=== PATIENT | female | born 1975 | race Caucasian/White ===

== ENCOUNTER 2018-07-15 10:50 | Emergency (ER) | payer OTHER ==
[2018-07-15] MEDS ORDERED: Hydromorphone 1 mg/ml Ampule IV ONE ×2 (11:25→14:31)
[2018-07-15] MEDS ORDERED: Sodium Chloride 0.9% 1000 ML 1,000 ML IV SCH (11:30)
[2018-07-15 11:48] LABS: BASOPHIL % 0.2 % (0.0-0.4); Basophil (Absolute #) 0.02 (0-0.4); Eosinophil % 0.8 % (0.00-5.0); Eosinophil (Absolute #) 0.08 (0-0.5); Granulocyte Absolute (ANC) 6.49 (1.4-6.9); Granulocytes % 66.4 % (36.0-66.0); Hematocrit 43.7 % (35-47); Hemoglobin 14.4 gm/dl (12.0-16.0); Lymphocyte (Absolute #) 2.66 (1.0-4.6); Lymphocytes % 27.2 % (24.0-44.0); Mean Cell Volume 92.4 fl (78-100); Mean Corpuscular Hemoglobin 30.4 pg (26-32); Mean Platelet Volume 9.4 fl (6-9.5); Monocyte (Absolute #) 0.53 (0.0-1.3); Monocytes % 5.4 % (0.0-12.0); Platelet Count 358 K/mm3 (150-450); Red Blood Count 4.73 M/mm3 (4.1-5.4); Red Cell Distribution Width 13.4 % (11.5-14.0); White Blood Count 9.8 K/mm3 (4.0-10.5)
[2018-07-15] MEDS ORDERED: Hydromorphone 1 mg/ml Ampule ONE ×2 (11:51→14:35)
[2018-07-15] MEDS ORDERED: Sodium Chloride 0.9% 1000 ML 1,000 ML ONE (11:52)
[2018-07-15 11:59] LABS: ALBUMIN 4.4 g/dL (3.5-5.0); ALKALINE PHOSPHATASE 65 U/L (38-126); AMYLASE 56 U/L (30-110); ANION GAP 13.5 MEQ/L (5-15); BLOOD UREA NITROGEN 11 mg/dL (7-17); CHLORIDE 104 mmol/L (98-107); Calcium 9.8 mg/dL (8.4-10.2); Carbon Dioxide 26 mmol/L (22-30); Creatinine 1 0.76 mg/dL (0.52-1.04); Glucose 108 mg/dL (74-106); LIPASE 78 U/L (23-300); Potassium 4.3 mmol/L (3.5-5.1); SGOT/AST 24 U/L (14-36); SGPT/ALT 26 U/L (0-35); SODIUM 140 mmol/L (137-145)
--- NOTE | 2018-07-15 12:21 | XRAY ---
Indication: Left flank pain. History kidney stones. Multiple contiguous axial images obtained through the abdomen and pelvis without contrast as ordered. Comparison: CT renal stone study April 04, 2016P Lung bases demonstrates mild bibasilar dependent atelectasis. Stable minimal left base fibrosis/scarring. No infiltrate or effusion. Heart is not enlarged. New small hiatal hernia. Noncontrasted stomach and bowel loops appear nonobstructed. Normal appendix. No free fluid/air. Again mild scattered colonic diverticulosis, greatest in the sigmoid colon. There is now a 3-4 mm left midureteral calculus, approximately S1 level. Proximal left ureter is prominent up to 8 mm and there is mild hydronephrosis with renal edema consistent with obstructive uropathy. No perinephric fluid. Stable nonobstructing punctate right renal calculus. Stable fatty liver. Remaining liver, gallbladder, pancreas, spleen, adrenal glands, bladder, uterus, and aorta appear unremarkable for noncontrast exam. Osseous structures intact. Stable small fatty umbilical hernia. Impression: 1. New 3-4 mm left midureteral calculus producing partial obstruction as detailed. Stable nonobstructing right renal micro-calculus. 2. New small hiatal hernia. 3. Stable fatty liver, colonic diverticulosis, and small fatty umbilical hernia. CT DI 23.68
--- NOTE | 2018-07-15 13:19 | ERPHSYRPT ---
- History of Present Illness Historian: patient Exam Limitations: no limitations Patient Subjective Stated Complaint: here for abd pain lower, and left flank pain since this morning getting worse Triage Nursing Assessment: pt alert, resp easy, skin w/d/p, and soft, no edema Physician History: Pt states, today at work she developed severe abdominal pain that is at upper left side and wrapps around her abdomen to back. Pt denies dysuria, frequency and urgency. She has her period now, so she does have blood in the urine. Pt denies F/C/S. No N/V/D or constipation. Pt denies SOB or wheeze. Pt had a stent placed in the past by DR Lockhart, as she had multiple episodes of kidney stones. Activities at Onset: none Quality: sharpness Abdominal Pain Onset Location: LUQ, flank (on Left) Pain Radiation: flank (Left) Severity of Pain-Max: severe Severity of Pain-Current: severe Modifying Factors: Improves With: nothing Associated Symptoms: denies symptoms Allergies/Adverse Reactions: No Known Drug Allergies Allergy (Verified 07/15/18 11:06) Home Medications: No Reportable Medications [No Reported Medications] 07/15/18 [History] Hx Tetanus, Diphtheria Vaccination/Date Given: Yes Hx Influenza Vaccination/Date Given: No Hx Pneumococcal Vaccination/Date Given: No Immunizations Up to Date: Yes - Review of Systems Constitutional: No Fever, No Chills Eyes: No Symptoms Ears, Nose, & Throat: No Symptoms Respiratory: No Cough, No Dyspnea Abdominal/Gastrointestinal: Abdominal Pain, Other (radiating to left CVA), No Nausea, No Vomiting, No Diarrhea Genitourinary Symptoms: No Dysuria Musculoskeletal: No Back Pain, No Neck Pain Skin: No Rash Neurological: No Dizziness, No Focal Weakness, No Sensory Changes Psychological: No Symptoms Endocrine: No Symptoms All Other Systems: Reviewed and Negative - Past Medical History Pertinent Past Medical History: Yes Neurological History: Migraines ENT History: No Pertinent History Cardiac History: Other Respiratory History: No Pertinent History Endocrine Medical History: Other Musculoskeletal History: No Pertinent History GI Medical History: No Pertinent History, Irritable Bowel History: No Pertinent History Psycho-Social History: No Pertinent History Female Reproductive Disorders: No Pertinent History Other Medical History: KIDNEY STONES, MITRAL VALAVE PROLAPSE - Past Surgical History Past Surgical History: Yes Neuro Surgical History: No Pertinent History Cardiac: No Pertinent History Respiratory: No Pertinent History Gastrointestinal: No Pertinent History Genitourinary: No Pertinent History, Kidney Surgery Musculoskeletal: No Pertinent History Female Surgical History: No Pertinent History, Section Other Surgical History: tonsilectomy, kidney stones - Social History Smoking Status: Never smoker Exposure to second hand smoke: No Drug Use: none Patient Lives Alone: No - Female History Hx Last Menstrual Period: now Hx Now: No - Nursing Vital Signs Nursing Vital Signs: Initial Vital Signs Temperature 97.8 F 07/15/18 10:56 Pulse Rate 63 07/15/18 10:56 Respiratory Rate 16 07/15/18 10:56 Blood Pressure 151/98 07/15/18 10:56 O2 Sat by Pulse Oximetry 95 07/15/18 10:56 Pain Scale Pain Intensity 4 - Physical Exam General Appearance: no apparent distress, alert Eye Exam: PERRL/EOMI, eyes nml inspection Ears, Nose, Throat Exam: normal ENT inspection, pharynx normal, moist mucous membranes Neck Exam: normal inspection, non-tender, supple, full range of motion Respiratory Exam: normal breath sounds, lungs clear, No respiratory distress Cardiovascular Exam: regular rate/rhythm, normal heart sounds Gastrointestinal/Abdomen Exam: soft, tenderness, No mass Back Exam: normal inspection, normal range of motion, CVA tenderness (On left), No vertebral tenderness Extremity Exam: normal inspection, normal range of motion, pelvis stable SpO2: 98 Oxygen Delivery: Room Air - CT Exams Abdomen/Pelvis CT Interpretation: Other (New 3-4mm left midureteral calculus producing partial obstruction.) Ordered Tests: Active Orders 24 hr Category Date Time Status IV Insertion STAT Care 07/15/18 11:25 Active NPO (ED) STAT Care 07/15/18 11:25 Active ABDOMEN AND PELVIS W/0 CONTRAS [CT] Stat Exams 07/15/18 11:26 Completed AMYLASE Stat Lab 07/15/18 11:30 Completed CBC W DIFF Stat Lab 07/15/18 11:30 Completed CMP Stat Lab 07/15/18 11:30 Completed HCG,QUALITATIVE URINE Stat Lab 07/15/18 11:40 Completed LIPASE Stat Lab 07/15/18 11:30 Completed Lactic Acid Stat Lab 07/15/18 11:25 Completed Medication Summary Generic Name Dose Route Start Last Admin Trade Name Freq PRN Reason Stop Dose Admin Sodium Chloride 1,000 mls @ 200 mls/hr 07/15/18 11:30 07/15/18 11:59 Sodium Chloride 0.9% 1000 Ml IV 08/14/18 11:29 200 mls/hr .Q5H AV Administration Discontinued Medications Generic Name Dose Route Start Last Admin Trade Name Benson PRN Reason Stop Dose Admin Hydromorphone HCl 1 mg 07/15/18 11:25 07/15/18 11:59 Hydromorphone 1 Mg/Ml Ampule IV 07/15/18 11:26 1 mg STAT ONE Administration Hydromorphone HCl Confirm 07/15/18 11:51 Hydromorphone 1 Mg/Ml Ampule Administered 07/15/18 11:52 Dose 1 mg .ROUTE .[facility]-MED ONE Lab/Rad Data: Laboratory Result Diagrams 07/15/18 11:30 07/15/18 11:30 Laboratory Results 07/15/18 07/15/18 07/15/18 Range/Units 11:40 11:30 11:30 WBC 9.8 (4.0-10.5) K/mm3 RBC 4.73 (4.1-5.4) M/mm3 Hgb 14.4 (12.0-16.0) gm/dl Hct 43.7 (35-47) % MCV 92.4 (78-100) fl MCH 30.4 (26-32) pg MCHC 33.0 (32-36) g/dl RDW 13.4 (11.5-14.0) % Plt Count 358 (150-450) K/mm3 MPV 9.4 (6-9.5) fl Gran % 66.4 H (36.0-66.0) % Eos # (Auto) 0.08 (0-0.5) Absolute Lymphs (auto) 2.66 (1.0-4.6) Absolute Monos (auto) 0.53 (0.0-1.3) Lymphocytes % 27.2 (24.0-44.0) % Monocytes % 5.4 (0.0-12.0) % Eosinophils % 0.8 (0.00-5.0) % Basophils % 0.2 (0.0-0.4) % Absolute Granulocytes 6.49 (1.4-6.9) Basophils # 0.02 (0-0.4) Sodium 140 (137-145) mmol/L Potassium 4.3 (3.5-5.1) mmol/L Chloride 104 (98-107) mmol/L Carbon Dioxide 26 (22-30) mmol/L Anion Gap 13.5 (5-15) MEQ/L BUN 11 (7-17) mg/dL Creatinine 0.76 (0.52-1.04) mg/dL Estimated GFR > 60.0 ML/MIN Glucose 108 H (74-106) mg/dL Lactic Acid (0.4-2.0) Calcium 9.8 (8.4-10.2) mg/dL Total Bilirubin 0.40 (0.2-1.3) mg/dL AST 24 (14-36) U/L ALT 26 (0-35) U/L Alkaline Phosphatase 65 (38-126) U/L Serum Total Protein 7.0 (6.3-8.2) g/dL Albumin 4.4 (3.5-5.0) g/dL Amylase 56 (30-110) U/L Lipase 78 (23-300) U/L Urine HCG, Qual NEGATIVE (Negative) 07/15/18 Range/Units 11:25 WBC (4.0-10.5) K/mm3 RBC (4.1-5.4) M/mm3 Hgb (12.0-16.0) gm/dl Hct (35-47) % MCV (78-100) fl MCH (26-32) pg MCHC (32-36) g/dl RDW (11.5-14.0) % Plt Count (150-450) K/mm3 MPV (6-9.5) fl Gran % (36.0-66.0) % Eos # (Auto) (0-0.5) Absolute Lymphs (auto) (1.0-4.6) Absolute Monos (auto) (0.0-1.3) Lymphocytes % (24.0-44.0) % Monocytes % (0.0-12.0) % Eosinophils % (0.00-5.0) % Basophils % (0.0-0.4) % Absolute Granulocytes (1.4-6.9) Basophils # (0-0.4) Sodium (137-145) mmol/L Potassium (3.5-5.1) mmol/L Chloride (98-107) mmol/L Carbon Dioxide (22-30) mmol/L Anion Gap (5-15) MEQ/L BUN (7-17) mg/dL Creatinine (0.52-1.04) mg/dL Estimated GFR ML/MIN Glucose (74-106) mg/dL Lactic Acid 1.8 (0.4-2.0) Calcium (8.4-10.2) mg/dL Total Bilirubin (0.2-1.3) mg/dL AST (14-36) U/L ALT (0-35) U/L Alkaline Phosphatase (38-126) U/L Serum Total Protein (6.3-8.2) g/dL Albumin (3.5-5.0) g/dL Amylase (30-110) U/L Lipase (23-300) U/L Urine HCG, Qual (Negative) - Progress Progress: improved Discussed with .: Other (Dr Gutiérrez) Will see patient in: ED (Formerly [facility] ER) - Departure Time of Disposition: 14:22 Departure Disposition: Transfer (Formerly [facility] ER) Clinical Impression: Left nephrolithiasis Condition: Stable Critical Care Time: No Referrals: NEETA HECK [Primary Care Provider] - Additional Instructions: F/U with Dr Gutiérrez at [facility] ER. ED physician accepted.
[2018-07-15 14:59] VITALS: BP 132/81; PULSE 78; O2SAT 97
== END 2018-07-15 15:12 | disposition home or self-care (01) ==
LOC: ED 10:50
DX: N20.0 Calculus of kidney (principal); R10.9 Unspecified abdominal pain; I34.1 Nonrheumatic mitral (valve) prolapse; Z87.442 Personal history of urinary calculi
CPT/HCPCS: 36000; 36415; 74176; 80053; 82150; 83605; 83690; 84703; 85025; 96360; 96361; 96374; 96376; 99285; J1170

== ENCOUNTER 2019-09-22 01:47 | Emergency (ER) | payer OTHER ==
--- NOTE | 2019-09-22 01:53 | ERPHSYRPT ---
- History of Present Illness Time Seen by Provider: 09/22/19 01:53 Source: patient Exam Limitations: no limitations Physician History: 44 y/o white female presents with left earache that began this past evening. pt has had a cough for 2 days. no n/v/d. no abd pain. Timing/Duration: day(s) Cough Quality/Degree: mild, dry cough Possible Cause: no prior episodes Modifying Factors: Improves With: coughing Associated Symptoms: denies symptoms, earache (left), sore throat (mild) Allergies/Adverse Reactions: No Known Drug Allergies Allergy (Verified 09/22/19 02:30) Home Medications: Aspirin 81 mg PO DAILY 09/22/19 [History] Pioglitazone HCl/Metformin HCl [Pioglitazone-Metformin 15-500] 15 - 500 mg PO BID 09/22/19 [History] lisinopriL [Lisinopril] 10 mg PO DAILY 09/22/19 [History] Hx Tetanus, Diphtheria Vaccination/Date Given: Yes Hx Influenza Vaccination/Date Given: No Hx Pneumococcal Vaccination/Date Given: No - Review of Systems Constitutional: No Symptoms Eyes: No Symptoms Ears, Nose, & Throat: Ear Pain (left) Respiratory: Cough Cardiac: No Symptoms Abdominal/Gastrointestinal: No Symptoms Genitourinary Symptoms: No Symptoms Musculoskeletal: No Symptoms Skin: No Symptoms Neurological: No Symptoms Psychological: No Symptoms Endocrine: No Symptoms Hematologic/Lymphatic: No Symptoms Immunological/Allergic: No Symptoms All Other Systems: Reviewed and Negative - Past Medical History Pertinent Past Medical History: Yes Neurological History: Migraines ENT History: No Pertinent History Cardiac History: Other Respiratory History: No Pertinent History Endocrine Medical History: Other Musculoskeletal History: No Pertinent History GI Medical History: No Pertinent History, Irritable Bowel History: No Pertinent History Psycho-Social History: No Pertinent History Female Reproductive Disorders: No Pertinent History Other Medical History: KIDNEY STONES, MITRAL VALAVE PROLAPSE - Past Surgical History Past Surgical History: Yes Neuro Surgical History: No Pertinent History Cardiac: No Pertinent History Respiratory: No Pertinent History Gastrointestinal: No Pertinent History Genitourinary: No Pertinent History, Kidney Surgery Musculoskeletal: No Pertinent History Female Surgical History: No Pertinent History, Section Other Surgical History: tonsilectomy, kidney stones - Social History Smoking Status: Never smoker Exposure to second hand smoke: No Drug Use: none Patient Lives Alone: No - Nursing Vital Signs Nursing Vital Signs: Initial Vital Signs Temperature 99 F 09/22/19 02:20 Pulse Rate 86 09/22/19 02:20 Respiratory Rate 16 09/22/19 02:20 Blood Pressure 162/104 09/22/19 02:20 O2 Sat by Pulse Oximetry 96 09/22/19 02:20 Pain Scale Pain Intensity 8 - Physical Exam General Appearance: no apparent distress, alert, anxiety Eye Exam: PERRL/EOMI, eyes nml inspection Ears, Nose, Throat Exam: normal ENT inspection, TMs normal, moist mucous membranes Neck Exam: normal inspection, non-tender, supple, full range of motion Respiratory Exam: normal breath sounds, lungs clear, airway intact, No chest tenderness, No respiratory distress Cardiovascular Exam: regular rate/rhythm, normal heart sounds, normal peripheral pulses Gastrointestinal/Abdomen Exam: soft, normal bowel sounds, No tenderness Pelvic Exam: not done Rectal Exam: not done Back Exam: normal inspection, normal range of motion, No CVA tenderness, No vertebral tenderness Extremity Exam: normal inspection, normal range of motion, pelvis stable Neurologic Exam: alert, oriented x 3, cooperative, 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 Skin Exam: normal color, warm, dry Lymphatic Exam: No adenopathy SpO2 Interpretation: normal O2 Delivery: Room Air Lab/Rad Data: Laboratory Results 09/22/19 Range/Units 03:15 Influenza Type A Ag POSITIVE (NEGATIVE) Influenza Type B Ag NEGATIVE (NEGATIVE) RSV (PCR) POSITIVE (Negative) Group A Strep Antibody NEGATIVE (NEGATIVE) - Progress Progress: unchanged Air Movement: good Blood Culture(s) Obtained: No Antibiotics given: No Counseled pt/family regarding: lab results, diagnosis, need for follow-up - Departure Departure Disposition: Home Clinical Impression: Influenza A, RSV (respiratory syncytial virus infection) Condition: Stable Critical Care Time: No Referrals: NEETA HECK [Primary Care Provider] - Additional Instructions: drink plenty of fluids. add ibuprofen for fever and pain. follow up with primary doctor for further management Prescriptions: Hydrocodone/APAP 5-325 Tab^^^ [[place] 5-325 Tablet^^^] 1 tab PO Q8H PRN PRN #8 tablet MDD 3 PRN Reason: Pain Oseltamivir 75 mg [Tamiflu 75MG Capsule] 75 mg PO BID #10 cap Prednisone 10 mg [Deltasone 10 mg] 10 mg PO TID #12 tablet
[2019-09-22 03:53] LABS: INFLUENZA A POSITIVE (NEGATIVE); INFLUENZA B NEGATIVE (NEGATIVE)
[2019-09-22 03:54] LABS: RESPIRATORY SYNCTIAL VIRUS POSITIVE (Negative)
[2019-09-22] MEDS ORDERED: Norco 10/325 MG Tablet PO ONE (03:56)
[2019-09-22] MEDS ORDERED: DELTASONE 10 MG PO ONE (03:57)
[2019-09-22] MEDS ORDERED: Tamiflu 75MG Capsule PO ONE ×2 (03:57→04:08)
[2019-09-22] MEDS ORDERED: Norco 10/325 MG Tablet ONE (04:08)
[2019-09-22 04:26] VITALS: BP 133/88; PULSE 75; O2SAT 96
== END 2019-09-22 04:35 | disposition home or self-care (01) ==
LOC: ED 01:47
DX: J09.X2 Influenza due to identified novel influenza A virus with other respiratory manifestations (principal); B97.4 Respiratory syncytial virus as the cause of diseases classified elsewhere
CPT/HCPCS: 87631; 87651; 99284; A9270-GY

== ENCOUNTER 2020-03-27 21:32 | Emergency (ER) | payer OTHER ==
--- NOTE | 2020-03-27 21:36 | ERPHSYRPT ---
- History of Present Illness Time Seen by Provider: 03/27/20 21:36 Source: patient Exam Limitations: no limitations Physician History: Is a 44-year-old white female with a history of hypertension, type 2 diabetes, irritable bowel syndrome and mitral valve prolapse who presents to the emergency department with left flank pain with radiation down to her left groin. It was sudden in onset. It was sharp and severe. It occurred approximately noon today. Patient took some ibuprofen for the pain. The pain has gotten worse. Patient has had ureteral obstruction with stones in the past. This feels similar to that. She is had no nausea vomiting or diarrhea. She has no chest pain and she is not short of breath. Patient's urologist is Dr. Gutiérrez out of [facility] Timing/Duration: today, constant, sudden, worse Severity of Pain-Max: moderate Severity of Pain-Current: moderate Associated Symptoms: denies symptoms Previous symptoms: same symptoms as today Allergies/Adverse Reactions: No Known Drug Allergies Allergy (Verified 03/27/20 21:44) Home Medications: Aspirin 81 mg PO DAILY 09/22/19 [History] Pioglitazone HCl/Metformin HCl [Pioglitazone-Metformin 15-500] 15 - 500 mg PO BID 09/22/19 [History] lisinopriL [Lisinopril] 10 mg PO DAILY 09/22/19 [History] Amlodipine Besylate 5 mg [Norvasc 5 mg] 1 tab PO DAILY 03/27/20 [History] Hx Tetanus, Diphtheria Vaccination/Date Given: Yes Hx Influenza Vaccination/Date Given: No Hx Pneumococcal Vaccination/Date Given: No Travel Risk - International Travel Have you traveled outside of the country in past 3 weeks: No - Coronavirus Screening Are you exhibiting any of the following symptoms?: No Close contact with a COVID-19 positive Pt in past 14-21 Days: No - Review of Systems Constitutional: No Symptoms Eyes: No Symptoms Ears, Nose, & Throat: No Symptoms Respiratory: No Symptoms Cardiac: No Symptoms Abdominal/Gastrointestinal: No Symptoms Genitourinary Symptoms: Flank Pain (Left) Musculoskeletal: No Symptoms Skin: No Symptoms Neurological: No Symptoms Psychological: No Symptoms Endocrine: No Symptoms Hematologic/Lymphatic: No Symptoms Immunological/Allergic: No Symptoms All Other Systems: Reviewed and Negative - Past Medical History Pertinent Past Medical History: Yes Neurological History: Migraines ENT History: No Pertinent History Cardiac History: Other Respiratory History: No Pertinent History Endocrine Medical History: Other Musculoskeletal History: No Pertinent History GI Medical History: No Pertinent History, Irritable Bowel History: No Pertinent History Psycho-Social History: No Pertinent History Female Reproductive Disorders: No Pertinent History Other Medical History: KIDNEY STONES, MITRAL VALAVE PROLAPSE - Past Surgical History Past Surgical History: Yes Neuro Surgical History: No Pertinent History Cardiac: No Pertinent History Respiratory: No Pertinent History Gastrointestinal: No Pertinent History Genitourinary: No Pertinent History, Kidney Surgery Musculoskeletal: No Pertinent History Female Surgical History: No Pertinent History, Section Other Surgical History: tonsilectomy, kidney stones - Social History Smoking Status: Never smoker Exposure to second hand smoke: No Drug Use: none Patient Lives Alone: No - Nursing Vital Signs Nursing Vital Signs: Initial Vital Signs Temperature 98.6 F 03/27/20 21:32 Pulse Rate 74 03/27/20 21:32 Respiratory Rate 18 03/27/20 21:32 Blood Pressure 115/76 03/27/20 21:32 O2 Sat by Pulse Oximetry 96 03/27/20 21:32 Pain Scale Pain Intensity 3 - Physical Exam General Appearance: mild distress, alert, anxiety Eye Exam: PERRL/EOMI, eyes nml inspection Ears, Nose, Throat Exam: normal ENT inspection, moist mucous membranes Neck Exam: normal inspection, non-tender, supple, full range of motion Respiratory Exam: normal breath sounds, lungs clear, airway intact, No chest tenderness, No respiratory distress Cardiovascular Exam: regular rate/rhythm, normal heart sounds, normal peripheral pulses Gastrointestinal Exam: soft, normal bowel sounds, tenderness, No guarding (Left groin) Pelvic Exam: not done Rectal Exam: not done Back Exam: normal inspection, normal range of motion, CVA tenderness (Left), No vertebral tenderness Extremity Exam: normal inspection, normal range of motion, pelvis stable Neurologic Exam: alert, oriented x 3, cooperative, 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 Skin Exam: normal color, warm, dry Lymphatic Exam: No adenopathy SpO2 Interpretation: normal O2 Delivery: Room Air Ordered Tests: Active Orders 24 hr Category Date Time Status IV Insertion STAT Care 03/27/20 22:02 Active ABDOMEN AND PELVIS W/0 CONTRAS [CT] Stat Exams 03/27/20 22:03 Taken AMYLASE Stat Lab 03/27/20 22:08 Completed CBC W DIFF Stat Lab 03/27/20 22:08 Completed CMP Stat Lab 03/27/20 22:08 Completed LIPASE Stat Lab 03/27/20 22:08 Completed UA W/RFX UR CULTURE Stat Lab 03/27/20 22:22 Completed Medication Summary Discontinued Medications Generic Name Dose Route Start Last Admin Trade Name Benson PRN Reason Stop Dose Admin Hydromorphone HCl 1 mg 03/27/20 22:02 03/27/20 22:19 Hydromorphone 1 Mg/Ml Ampule IV 03/27/20 22:03 1 mg STAT ONE Administration Hydromorphone HCl Confirm 03/27/20 22:10 Hydromorphone 1 Mg/Ml Ampule Administered 03/27/20 22:11 Dose 1 mg .ROUTE .STK-MED ONE Sodium Chloride 1,000 mls @ 999 mls/hr 03/27/20 22:02 03/27/20 22:19 Sodium Chloride 0.9% 1000 Ml IV 03/27/20 23:02 999 mls/hr .Q1H1M STA Administration Sodium Chloride Confirm 03/27/20 22:10 Sodium Chloride 0.9% 1000 Ml Administered 03/27/20 22:11 Dose 1,000 mls @ ud .ROUTE .STK-MED ONE Ketorolac Tromethamine 30 mg 03/27/20 22:02 03/27/20 22:18 Toradol 30 Mg Injection IV 03/27/20 22:03 30 mg STAT ONE Administration Ketorolac Tromethamine Confirm 03/27/20 22:10 Toradol 30 Mg Injection Administered 03/27/20 22:11 Dose 30 mg .ROUTE .STK-MED ONE Ondansetron HCl 4 mg 03/27/20 22:02 03/27/20 22:19 Zofran 4 Mg/2 Ml Vial IV 03/27/20 22:03 4 mg STAT ONE Administration Ondansetron HCl Confirm 03/27/20 22:10 Zofran 4 Mg/2 Ml Vial Administered 03/27/20 22:11 Dose 4 mg .ROUTE .STK-MED ONE Lab/Rad Data: Laboratory Result Diagrams 03/27/20 22:08 03/27/20 22:08 Laboratory Results 03/27/20 03/27/20 03/27/20 Range/Units 22:22 22:08 22:08 WBC 13.5 H (4.0-10.5) K/mm3 RBC 4.61 (4.1-5.4) M/mm3 Hgb 14.3 (12.0-16.0) gm/dl Hct 43.7 (35-47) % MCV 94.8 (78-100) fl MCH 31.0 (26-32) pg MCHC 32.7 (32-36) g/dl RDW 12.9 (11.5-14.0) % Plt Count 374 (150-450) K/mm3 MPV 9.7 (7.5-11.0) fl Gran % 74.4 H (36.0-66.0) % Eos # (Auto) 0.06 (0-0.5) Absolute Lymphs (auto) 2.88 (1.0-4.6) Absolute Monos (auto) 0.50 (0.0-1.3) Lymphocytes % 21.3 L (24.0-44.0) % Monocytes % 3.7 (0.0-12.0) % Eosinophils % 0.4 (0.00-5.0) % Basophils % 0.2 (0.0-0.4) % Absolute Granulocytes 10.06 H (1.4-6.9) Basophils # 0.03 (0-0.4) Sodium 141 (137-145) mmol/L Potassium 4.1 (3.5-5.1) mmol/L Chloride 107 (98-107) mmol/L Carbon Dioxide 25 (22-30) mmol/L Anion Gap 12.6 (5-15) MEQ/L BUN 16 (7-17) mg/dL Creatinine 0.81 (0.52-1.04) mg/dL Estimated GFR > 60.0 ML/MIN Glucose 145 H (74-106) mg/dL Calcium 10.0 (8.4-10.2) mg/dL Total Bilirubin 0.40 (0.2-1.3) mg/dL AST 31 (14-36) U/L ALT 32 (0-35) U/L Alkaline Phosphatase 76 (38-126) U/L Serum Total Protein 7.5 (6.3-8.2) g/dL Albumin 4.2 (3.5-5.0) g/dL Amylase 92 (30-110) U/L Lipase 122 (23-300) U/L Urine Color YELLOW (YELLOW) Urine Appearance CLOUDY (CLEAR) Urine pH 5.0 (5-6) Ur Specific Linch 1.026 (1.005-1.025) Urine Protein NEGATIVE (Negative) Urine Ketones NEGATIVE (NEGATIVE) Urine Blood MODERATE (0-5) Willy/ul Urine Nitrite NEGATIVE (NEGATIVE) Urine Bilirubin NEGATIVE (NEGATIVE) Urine Urobilinogen NEGATIVE (0-1) mg/dL Ur Leukocyte Esterase NEGATIVE (NEGATIVE) Urine WBC (Auto) 3-5 (0-5) /HPF Urine RBC (Auto) 16-25 (0-2) /HPF U Epithel Cells (Auto) RARE (FEW) /HPF Urine Bacteria (Auto) NONE (NEGATIVE) /HPF Amorphous Crystals FEW (NEGATIVE) /HPF Urine Mucus (Auto) SLIGHT (NEGATIVE) /HPF Urine Culture Reflexed NO (NO) Urine Glucose NEGATIVE (NEGATIVE) mg/dL - Progress Progress: improved Progress Note: 03/27/20 23:09 CAT scan of the abdomen and pelvis reveals a 4.4 mm distal left ureteral stone with mild left hydronephrosis. Clinically, the patient states her pain is significantly improved. Counseled pt/family regarding: lab results, diagnosis, need for follow-up, rad results - Departure Departure Disposition: Home Clinical Impression: Ureterolithiasis Condition: Stable Critical Care Time: No Referrals: NEETA HECK [Primary Care Provider] - Additional Instructions: Drink plenty of fluids. Take medication as prescribed. Call your urologist tomorrow morning to arrange a follow-up appointment for further management. Add ibuprofen 600 mg orally with food 3 times a day for the next 4 days Prescriptions: Hydrocodone/APAP 5-325 Tab^^^ [[place] 5-325 Tablet^^^] 1 tab PO Q6HPRN PRN #10 tablet MDD 6 PRN Reason: Pain Tamsulosin HCl 0.4 mg [Flomax 0.4 MG] 0.4 mg PO DAILY #7 cap
[2020-03-27] MEDS ORDERED: Zofran 4 MG/2 ML VIAL IV ONE (22:02)
[2020-03-27] MEDS ORDERED: Sodium Chloride 0.9% 1000 ML 1,000 ML IV STA (22:02)
[2020-03-27] MEDS ORDERED: TORAdol 30 mg Injection IV ONE (22:02)
[2020-03-27] MEDS ORDERED: Hydromorphone 1 mg/ml Ampule IV ONE (22:02)
[2020-03-27] MEDS ORDERED: Zofran 4 MG/2 ML VIAL ONE (22:10)
[2020-03-27] MEDS ORDERED: Sodium Chloride 0.9% 1000 ML 1,000 ML ONE (22:10)
[2020-03-27] MEDS ORDERED: Hydromorphone 1 mg/ml Ampule ONE (22:10)
[2020-03-27] MEDS ORDERED: TORAdol 30 mg Injection ONE (22:10)
[2020-03-27 22:15] LABS: Absolute Neutrophil Ct (ANC) 10.06 (1.4-6.9); BASOPHIL % 0.2 % (0.0-0.4); Basophil (Absolute #) 0.03 (0-0.4); Eosinophil % 0.4 % (0.00-5.0); Eosinophil (Absolute #) 0.06 (0-0.5); Hematocrit 43.7 % (35-47); Hemoglobin 14.3 gm/dl (12.0-16.0); Lymphocyte (Absolute #) 2.88 (1.0-4.6); Lymphocytes % 21.3 % (24.0-44.0); Mean Cell Volume 94.8 fl (78-100); Mean Corpuscular Hgb Concent. 32.7 g/dl (32-36); Mean Platelet Volume 9.7 fl (7.5-11.0); Monocytes % 3.7 % (0.0-12.0); Neutrophil % 74.4 % (36.0-66.0); Platelet Count 374 K/mm3 (150-450); Red Blood Count 4.61 M/mm3 (4.1-5.4); Red Cell Distribution Width 12.9 % (11.5-14.0); White Blood Count 13.5 K/mm3 (4.0-10.5)
[2020-03-27 22:26] LABS: ALBUMIN 4.2 g/dL (3.5-5.0); ALKALINE PHOSPHATASE 76 U/L (38-126); AMYLASE 92 U/L (30-110); ANION GAP 12.6 MEQ/L (5-15); BLOOD UREA NITROGEN 16 mg/dL (7-17); CHLORIDE 107 mmol/L (98-107); Carbon Dioxide 25 mmol/L (22-30); Creatinine 1 0.81 mg/dL (0.52-1.04); Glucose 145 mg/dL (74-106); LIPASE 122 U/L (23-300); Potassium 4.1 mmol/L (3.5-5.1); SGOT/AST 31 U/L (14-36); SGPT/ALT 32 U/L (0-35); SODIUM 141 mmol/L (137-145); Total Protein 7.5 g/dL (6.3-8.2)
[2020-03-27 22:36] LABS: Amourphous Crystal FEW /HPF (NEGATIVE); Appearance CLOUDY (CLEAR); Bilirubin NEGATIVE (NEGATIVE); Blood MODERATE Ery/ul (0-5); Epithelial Cells RARE /HPF (FEW); Glucose NEGATIVE (NEGATIVE); Ketones NEGATIVE (NEGATIVE); Leukocyte Esterase NEGATIVE (NEGATIVE); Mucus SLIGHT /HPF (NEGATIVE); Nitrite NEGATIVE (NEGATIVE); Protein,Urine Dip NEGATIVE (Negative); Specific Gravity 1.026 (1.005-1.025); Urobilinogen NEGATIVE mg/dL (0-1)
[2020-03-27] MEDS ORDERED: NORCO 5/325 MG PO ONE (23:14)
[2020-03-27] MEDS ORDERED: NORCO 5/325 MG ONE (23:18)
[2020-03-27 23:31] VITALS: BP 115/84; PULSE 72; O2SAT 98
--- NOTE | 2020-03-28 08:40 | XRAY ---
Indication: Left flank pain. Nausea and vomiting. Urinary frequency. Multiple contiguous axial images obtained through the abdomen and pelvis without contrast as ordered. Comparison: July 15, 2018. Lung bases again demonstrates minimal bibasilar atelectasis/scarring. No infiltrate or effusion. Heart is not enlarged. Small hiatal hernia. Noncontrasted stomach and bowel loops remain nonobstructed. Normal appendix. There is mild diffuse scattered colonic fecal debris throughout. Stable mild sigmoid diverticulosis. No free fluid/air. New 3-4 mm distal left ureter calculus approximate 5 cm proximal to the UVJ. Proximal left ureter is distended up to 10 mm along with moderate hydronephrosis, left renal edema, and minimal left perinephric stranding consistent with obstructive uropathy. Additional new 3 mm left renal calculus and stable nonobstructing right renal punctate calculus. Stable fatty liver. Remaining liver, gallbladder, pancreas, spleen, adrenal glands, kidneys, ureters, bladder, and uterus are unremarkable for noncontrast exam. Stable mild aortoiliac calcifications without AAA. Osseous structures intact again with mild degenerative changes throughout the thoracolumbar spine. Impression: 1. New 3-4 mm distal left ureter calculus producing obstructive uropathy as detailed. Additional micro-calculus in each kidney. 2. Mild diffuse fecal stasis again with sigmoid diverticulosis. 3. Stable fatty liver. Comment: Preliminary interpretation was made by [facility]. No critical discrepancy.
== END 2020-03-27 23:28 | disposition home or self-care (01) ==
LOC: ED 21:32
DX: N13.2 Hydronephrosis with renal and ureteral calculous obstruction (principal)
CPT/HCPCS: 36000; 36415; 74176; 80053; 81001; 82150; 83690; 85025; 96360; 96374; 96375; 99284; J1170; J1885; J2405; A9270-GY

== ENCOUNTER 2020-12-07 04:35 | Emergency (ER) | payer OTHER ==
[2020-12-07] MEDS ORDERED: TORAdol 30 mg Injection IV ONE (04:55)
[2020-12-07] MEDS ORDERED: Sodium Chloride 0.9% 1000 ML 1,000 ML IV STA (04:55)
[2020-12-07 05:16] LABS: Absolute Neutrophil Ct (ANC) 13.14 (1.4-6.9); BASOPHIL % 0.1 % (0.0-0.4); Basophil (Absolute #) 0.02 (0-0.4); Eosinophil (Absolute #) 0 (0-0.5); Hematocrit 42.9 % (35-47); Hemoglobin 14.3 gm/dl (12.0-16.0); Lymphocyte (Absolute #) 2.47 (1.0-4.6); Lymphocytes % 15.2 % (24.0-44.0); Mean Cell Volume 93.1 fl (78-100); Mean Corpuscular Hgb Concent. 33.3 g/dl (32-36); Mean Platelet Volume 9.5 fl (7.5-11.0); Monocyte (Absolute #) 0.66 (0.0-1.3); Monocytes % 4.1 % (0.0-12.0); Neutrophil % 80.6 % (36.0-66.0); Platelet Count 428 K/mm3 (150-450); Red Blood Count 4.61 M/mm3 (4.1-5.4); Red Cell Distribution Width 12.7 % (11.5-14.0); White Blood Count 16.3 K/mm3 (4.0-10.5)
[2020-12-07 05:23] LABS: Appearance SLIGHTLY CLOUDY (CLEAR); Bacteria RARE /HPF (NEGATIVE); Bilirubin NEGATIVE (NEGATIVE); Blood NEGATIVE Ery/ul (0-5); Epithelial Cells RARE /HPF (FEW); Glucose NEGATIVE (NEGATIVE); Ketones NEGATIVE (NEGATIVE); Leukocyte Esterase TRACE (NEGATIVE); Mucus SLIGHT /HPF (NEGATIVE); Nitrite NEGATIVE (NEGATIVE); Protein,Urine Dip NEGATIVE (Negative); Specific Gravity 1.024 (1.005-1.025); Urobilinogen NEGATIVE mg/dL (0-1)
[2020-12-07] MEDS ORDERED: Sodium Chloride 0.9% 1000 ML 1,000 ML ONE (05:23)
[2020-12-07] MEDS ORDERED: TORAdol 30 mg Injection ONE (05:23)
[2020-12-07 05:26] LABS: ALBUMIN 4.6 g/dL (3.5-5.0); ALKALINE PHOSPHATASE 71 U/L (38-126); ANION GAP 18.6 MEQ/L (5-15); BLOOD UREA NITROGEN 19 mg/dL (7-17); CHLORIDE 100 mmol/L (98-107); Calcium 9.9 mg/dL (8.4-10.2); Carbon Dioxide 23 mmol/L (22-30); Creatinine 1 0.96 mg/dL (0.52-1.04); EST GLOMERULAR FILTRATION RATE > 60.0 ML/MIN; Glucose 157 mg/dL (74-106); Potassium 4.6 mmol/L (3.5-5.1); SGOT/AST 43 U/L (14-36); SGPT/ALT 40 U/L (0-35); SODIUM 137 mmol/L (137-145); Total Protein 7.7 g/dL (6.3-8.2)
--- NOTE | 2020-12-07 06:27 | ERPHSYRPT ---
- History of Present Illness Time Seen by Provider: 12/07/20 04:50 Historian: patient Exam Limitations: no limitations Patient Subjective Stated Complaint: pt c/o low back pain, nausea and vomiting. Triage Nursing Assessment: pt came back to ER via wheelchair. Pt c/o low back pain last night around 2100, but pain got progessively worse around 0230. Pt had worsening back pain, nausea and vomiting. Pt denies any radiation of pain. Abd lg, obese with active bs x4 quad. Pt has hx of kidney stones and states, "I'm sure that it's a kidney stone again". Physician History: Patient is a 45-year-old female presents to our ED with complaints of left side flank pain. Pain started approximately 9 PM last night. Pain progressively worsened. Patient shortly thereafter developed nausea and vomiting. Due to the severity of pain. Patient has history of kidney stones. Patient states her symptoms are similar. No obvious hematuria. No trauma. No fever. Symptoms are moderate in intensity. No specific worsening or improving factors. Patient voices no other complaints. No chest pain or shortness of breath. Patient denies urinary symptomology. No dysuria frequency or urgency. Patient has no vaginal discharge. Timing/Duration: yesterday Activities at Onset: none Quality: aching Abdominal Pain Onset Location: flank (Left flank) Pain Radiation: no radiation Severity of Pain-Max: moderate Severity of Pain-Current: mild Modifying Factors: Improves With: nothing Associated Symptoms: back, nausea, vomiting, No chest pain, No headache, No heartburn, No loss of appetite, No neck pain, No rash, No shortness of breath, No syncope, No weakness Previous symptoms: same symptoms as today Allergies/Adverse Reactions: No Known Drug Allergies Allergy (Verified 12/07/20 04:58) Home Medications: Aspirin 81 mg PO DAILY 09/22/19 [History] Amlodipine Besylate 5 mg [Norvasc 5 mg] 2 tab PO DAILY 03/27/20 [History] Cetirizine HCl [All Day Allergy] 10 mg PO DAILY 12/07/20 [History] Losartan Potassium 100 mg PO DAILY 12/07/20 [History] Metformin HCl 500 mg [Glucophage 500 MG] 1 tab PO BID 12/07/20 [History] Metoprolol Tartrate 50 mg PO DAILY 12/07/20 [History] Montelukast Sodium 10 mg PO DAILY 12/07/20 [History] Hx Tetanus, Diphtheria Vaccination/Date Given: No Hx Influenza Vaccination/Date Given: Yes Hx Pneumococcal Vaccination/Date Given: No Immunizations Up to Date: Yes Travel Risk - International Travel Have you traveled outside of the country in past 3 weeks: No - Coronavirus Screening Close contact with a COVID-19 positive Pt in past 14-21 Days: No - Review of Systems Constitutional: No Symptoms, No Fever, No Chills Eyes: No Symptoms Ears, Nose, & Throat: No Symptoms Respiratory: No Symptoms, No Cough, No Dyspnea Cardiac: No Symptoms, No Chest Pain, No Edema, No Syncope Abdominal/Gastrointestinal: No Symptoms, No Abdominal Pain, No Nausea, No Vomiting, No Diarrhea Genitourinary Symptoms: No Symptoms, No Dysuria Musculoskeletal: No Symptoms, No Back Pain, No Neck Pain Skin: No Symptoms, No Rash Neurological: No Symptoms, No Dizziness, No Focal Weakness, No Sensory Changes Psychological: No Symptoms Endocrine: No Symptoms Hematologic/Lymphatic: No Symptoms Immunological/Allergic: No Symptoms All Other Systems: Reviewed and Negative - Past Medical History Pertinent Past Medical History: Yes Neurological History: Migraines ENT History: No Pertinent History Cardiac History: Other Respiratory History: No Pertinent History Endocrine Medical History: Other Musculoskeletal History: No Pertinent History GI Medical History: No Pertinent History, Irritable Bowel History: No Pertinent History Psycho-Social History: No Pertinent History Female Reproductive Disorders: No Pertinent History Other Medical History: KIDNEY STONES, MITRAL VALAVE PROLAPSE - Past Surgical History Past Surgical History: Yes Neuro Surgical History: No Pertinent History Cardiac: No Pertinent History Respiratory: No Pertinent History Gastrointestinal: No Pertinent History Genitourinary: No Pertinent History, Kidney Surgery Musculoskeletal: No Pertinent History Female Surgical History: No Pertinent History, Section Other Surgical History: tonsilectomy, kidney stones - Social History Smoking Status: Never smoker Exposure to second hand smoke: No Drug Use: none Patient Lives Alone: No - Female History Hx Now: No - Nursing Vital Signs Nursing Vital Signs: Initial Vital Signs Temperature 98.4 F 12/07/20 04:45 Pulse Rate 88 12/07/20 04:45 Respiratory Rate 22 12/07/20 04:45 Blood Pressure 122/71 12/07/20 04:45 O2 Sat by Pulse Oximetry 96 12/07/20 04:45 Pain Scale Pain Intensity [] 9 Pain Intensity 4 - Physical Exam General Appearance: no apparent distress, alert Eye Exam: PERRL/EOMI, eyes nml inspection Ears, Nose, Throat Exam: normal ENT inspection, pharynx normal, moist mucous membranes Neck Exam: normal inspection, non-tender, supple, full range of motion Respiratory Exam: normal breath sounds, lungs clear, No respiratory distress Cardiovascular Exam: regular rate/rhythm, normal heart sounds Gastrointestinal/Abdomen Exam: soft, tenderness (Mild left CVA tenderness palpation.), No mass Back Exam: normal inspection, normal range of motion, No CVA tenderness, No vertebral tenderness Extremity Exam: normal inspection, normal range of motion, pelvis stable Neurologic Exam: alert, oriented x 3, cooperative, normal mood/affect, nml cerebellar function, sensation nml, No motor deficits Skin Exam: normal color, warm, dry SpO2 Interpretation: normal SpO2: 96 O2 Delivery: Room Air - Course Nursing assessment & vital signs reviewed: Yes - CT Exams Abdomen/Pelvis CT Interpretation: Tele-radiologist Report (There is a 0.5 cm stone in the left lower ureter. Moderate left hydronephrosis similar to prior study.) Ordered Tests: Active Orders 24 hr Category Date Time Status IV Insertion STAT Care 12/07/20 04:55 Active ABDOMEN AND PELVIS W/0 CONTRAS [CT] Stat Exams 12/07/20 04:56 Taken CBC W DIFF Stat Lab 12/07/20 05:00 Completed CMP Stat Lab 12/07/20 05:00 Completed CULTURE,URINE Stat Lab 12/07/20 06:45 Ordered HCG,QUALITATIVE URINE Stat Lab 12/07/20 05:10 Completed TROPONIN Q3H Lab 12/07/20 05:00 Completed TROPONIN Q3H Lab 12/07/20 08:00 Ordered TROPONIN Q3H Lab 12/07/20 11:00 Ordered TROPONIN Q3H Lab 12/07/20 14:00 Ordered TROPONIN Q3H Lab 12/07/20 17:00 Ordered UA W/RFX UR CULTURE Stat Lab 12/07/20 05:10 Completed Medication Summary Discontinued Medications Generic Name Dose Route Start Last Admin Trade Name Freq PRN Reason Stop Dose Admin Sodium Chloride 1,000 mls @ 999 mls/hr 12/07/20 04:55 12/07/20 05:29 Sodium Chloride 0.9% 1000 Ml IV 12/07/20 05:55 999 mls/hr .Q1H1M STA Administration Sodium Chloride Confirm 12/07/20 05:23 Sodium Chloride 0.9% 1000 Ml Administered 12/07/20 05:24 Dose 1,000 mls @ ud .ROUTE .STK-MED ONE Ketorolac Tromethamine 30 mg 12/07/20 04:55 12/07/20 05:29 Toradol 30 Mg Injection IV 12/07/20 04:56 30 mg STAT ONE Administration Ketorolac Tromethamine Confirm 12/07/20 05:23 Toradol 30 Mg Injection Administered 12/07/20 05:24 Dose 30 mg .ROUTE .STK-MED ONE Nitrofurantoin Macrocrystals 100 mg 12/07/20 06:42 Macrobid 100mg Capsule PO 12/07/20 06:43 STAT ONE Tamsulosin HCl 0.4 mg 12/07/20 06:39 Flomax 0.4 Mg PO 12/07/20 06:40 ONCE STA Lab/Rad Data: Laboratory Result Diagrams 12/07/20 05:00 12/07/20 05:00 Laboratory Results 12/07/20 12/07/20 12/07/20 Range/Units 05:10 05:10 05:00 WBC (4.0-10.5) K/mm3 RBC (4.1-5.4) M/mm3 Hgb (12.0-16.0) gm/dl Hct (35-47) % MCV (78-100) fl MCH (26-32) pg MCHC (32-36) g/dl RDW (11.5-14.0) % Plt Count (150-450) K/mm3 MPV (7.5-11.0) fl Gran % (36.0-66.0) % Eos # (Auto) (0-0.5) Absolute Lymphs (auto) (1.0-4.6) Absolute Monos (auto) (0.0-1.3) Lymphocytes % (24.0-44.0) % Monocytes % (0.0-12.0) % Eosinophils % (0.00-5.0) % Basophils % (0.0-0.4) % Absolute Granulocytes (1.4-6.9) Basophils # (0-0.4) Sodium (137-145) mmol/L Potassium (3.5-5.1) mmol/L Chloride (98-107) mmol/L Carbon Dioxide (22-30) mmol/L Anion Gap (5-15) MEQ/L BUN (7-17) mg/dL Creatinine (0.52-1.04) mg/dL Estimated GFR ML/MIN Glucose (74-106) mg/dL Calcium (8.4-10.2) mg/dL Total Bilirubin (0.2-1.3) mg/dL AST (14-36) U/L ALT (0-35) U/L Alkaline Phosphatase (38-126) U/L Troponin I 0.014 (0.000-0.034) ng/mL Serum Total Protein (6.3-8.2) g/dL Albumin (3.5-5.0) g/dL Urine Color YELLOW (YELLOW) Urine Appearance SLIGHTLY CLOUDY (CLEAR) Urine pH 6.0 (5-6) Ur Specific Darrow 1.024 (1.005-1.025) Urine Protein NEGATIVE (Negative) Urine Ketones NEGATIVE (NEGATIVE) Urine Blood NEGATIVE (0-5) Willy/ul Urine Nitrite NEGATIVE (NEGATIVE) Urine Bilirubin NEGATIVE (NEGATIVE) Urine Urobilinogen NEGATIVE (0-1) mg/dL Ur Leukocyte Esterase TRACE (NEGATIVE) Urine WBC (Auto) 3-5 (0-5) /HPF Urine RBC (Auto) 6-10 (0-2) /HPF U Epithel Cells (Auto) RARE (FEW) /HPF Urine Bacteria (Auto) RARE (NEGATIVE) /HPF Urine Mucus (Auto) SLIGHT (NEGATIVE) /HPF Urine Culture Reflexed NO (NO) Urine Glucose NEGATIVE (NEGATIVE) mg/dL Urine HCG, Qual NEGATIVE (Negative) 12/07/20 12/07/20 Range/Units 05:00 05:00 WBC 16.3 H (4.0-10.5) K/mm3 RBC 4.61 (4.1-5.4) M/mm3 Hgb 14.3 (12.0-16.0) gm/dl Hct 42.9 (35-47) % MCV 93.1 (78-100) fl MCH 31.0 (26-32) pg MCHC 33.3 (32-36) g/dl RDW 12.7 (11.5-14.0) % Plt Count 428 (150-450) K/mm3 MPV 9.5 (7.5-11.0) fl Gran % 80.6 H (36.0-66.0) % Eos # (Auto) 0 (0-0.5) Absolute Lymphs (auto) 2.47 (1.0-4.6) Absolute Monos (auto) 0.66 (0.0-1.3) Lymphocytes % 15.2 L (24.0-44.0) % Monocytes % 4.1 (0.0-12.0) % Eosinophils % 0.0 (0.00-5.0) % Basophils % 0.1 (0.0-0.4) % Absolute Granulocytes 13.14 H (1.4-6.9) Basophils # 0.02 (0-0.4) Sodium 137 (137-145) mmol/L Potassium 4.6 (3.5-5.1) mmol/L Chloride 100 (98-107) mmol/L Carbon Dioxide 23 (22-30) mmol/L Anion Gap 18.6 H (5-15) MEQ/L BUN 19 H (7-17) mg/dL Creatinine 0.96 (0.52-1.04) mg/dL Estimated GFR > 60.0 ML/MIN Glucose 157 H (74-106) mg/dL Calcium 9.9 (8.4-10.2) mg/dL Total Bilirubin 0.60 (0.2-1.3) mg/dL AST 43 H (14-36) U/L ALT 40 H (0-35) U/L Alkaline Phosphatase 71 (38-126) U/L Troponin I (0.000-0.034) ng/mL Serum Total Protein 7.7 (6.3-8.2) g/dL Albumin 4.6 (3.5-5.0) g/dL Urine Color (YELLOW) Urine Appearance (CLEAR) Urine pH (5-6) Ur Specific Darrow (1.005-1.025) Urine Protein (Negative) Urine Ketones (NEGATIVE) Urine Blood (0-5) Willy/ul Urine Nitrite (NEGATIVE) Urine Bilirubin (NEGATIVE) Urine Urobilinogen (0-1) mg/dL Ur Leukocyte Esterase (NEGATIVE) Urine WBC (Auto) (0-5) /HPF Urine RBC (Auto) (0-2) /HPF U Epithel Cells (Auto) (FEW) /HPF Urine Bacteria (Auto) (NEGATIVE) /HPF Urine Mucus (Auto) (NEGATIVE) /HPF Urine Culture Reflexed (NO) Urine Glucose (NEGATIVE) mg/dL Urine HCG, Qual (Negative) - Progress Progress: improved Counseled pt/family regarding: lab results, diagnosis, need for follow-up, rad results - Departure Departure Disposition: Home Clinical Impression: Ureterolithiasis, Hydronephrosis, Leukocytosis Condition: Stable Critical Care Time: No Referrals: NEETA HECK [Primary Care Provider] - Additional Instructions: Discharge/Care Plan INOCENCIA COPE was seen on 12/07/20 in the Emergency Room. The patient was counseled regarding Diagnosis,Lab results, Imaging studies, need for follow up and when to return to the Emergency Room. Prescriptions given: Discharge Note I have spoken with the patient and/or caregivers. I have explained the patient's condition, diagnosis and treatment plan based on the information available to me at this time. I have answered the patient's and/or caregiver's questions and addressed any concerns. The patient and/or caregivers have as good understanding of the patient's diagnosis, condition and treatment plan as can be expected at this point. The vital signs have been stable. The patient's condition is stable and appropriate for discharge from the emergency department. The patient will pursue further outpatient evaluation with the primary care physician or other designated or consulting physician as outlined in the discharge instructions. The patient and/or caregivers are agreeable to this plan of care and follow-up instructions have been explained in detail. The patient and/or caregivers have received these instruction. The patient/and or caregivers are aware that any significant change in condition or worsening of symptoms should prompt an immediate return to this or the closest emergency department or call 911. Prescriptions: Tamsulosin HCl 0.4 mg [Flomax 0.4 MG] 0.4 mg PO DAILY 14 Days #14 cap Nitrofurantoin Macro 100 mg [Macrobid 100MG Capsule] 100 mg PO BID 7 Days #14 capsule Ketorolac Tromethamine [Toradol] 10 mg PO TID 5 Days #15 tablet
[2020-12-07] MEDS ORDERED: Flomax 0.4 MG PO STA (06:39)
[2020-12-07] MEDS ORDERED: Macrobid 100MG Capsule PO ONE (06:42)
[2020-12-07] MEDS ORDERED: Macrobid 100MG Capsule ONE (06:54)
[2020-12-07] MEDS ORDERED: Flomax 0.4 MG ONE (06:54)
[2020-12-07] MEDS ORDERED: NORCO 5/325 MG PO ONE (07:16)
[2020-12-07] MEDS ORDERED: NORCO 5/325 MG ONE (07:24)
[2020-12-07 08:41] VITALS: BP 124/86; PULSE 69; O2SAT 97
--- NOTE | 2020-12-07 09:15 | XRAY ---
Indication: Left flank pain. Multiple contiguous axial images obtained through the abdomen and pelvis without contrast. Comparison: March 27, 2020. Lung bases again demonstrates bibasilar subsegmental atelectasis/scarring without infiltrate or effusion. Heart is not enlarged. Stable small hiatal hernia. Stomach is moderately fluid distended. Noncontrasted stomach and bowel loops appear nonobstructed. Normal appendix. There remains sigmoid diverticulosis without diverticulitis. Distal left ureter again demonstrates 4-5 mm calculus approximately 4-5 cm proximal to the UVJ. Proximal left ureter remains distended up to 11 mm. Left kidney again demonstrates moderate hydronephrosis with moderate renal edema/stranding favoring high-grade obstructive uropathy. No free fluid/air. Stable mild fatty liver. Remaining liver, gallbladder, pancreas, spleen, adrenal glands, right kidney, right ureter, urinary bladder, uterus, and aorta appear unremarkable for noncontrast exam. Osseous structures intact. Impression: 1. 4-5 mm distal left ureter calculus producing high-grade obstruction as detailed. 2. Again incidental small hiatal hernia, sigmoid diverticulosis, and fatty liver. Comment: Preliminary interpretation was made by [facility]. No critical discrepancy.
== END 2020-12-07 08:42 | disposition home or self-care (01) ==
LOC: ED 04:35
DX: N13.2 Hydronephrosis with renal and ureteral calculous obstruction (principal); D72.829 Elevated white blood cell count, unspecified
CPT/HCPCS: 36000; 36415; 74176; 80053; 81001; 84484; 84703; 85025; 87086; 96360; 96374; 99284; J1885; A9270-GY

== ENCOUNTER 2024-02-26 08:05 | Day surgery (SDC) | payer OTHER ==
[2024-02-26] MEDS ORDERED: Marcaine 0.5%/Epinephrine 10 ML IJ ONE (08:06)
[2024-02-26] MEDS: Lactated Ringers 1,000 ML IV SCH (08:15)
[2024-02-26] MEDS: CEFAZOLIN 2 GM-D5W BAG** 2 GM/50 ML ML IV SCH (08:16)
[2024-02-26 08:41] VITALS: RESP 16
[2024-02-26] MEDS ORDERED: Xylocaine-Mpf 2% 5 Ml Vial ONE (10:52)
[2024-02-26] MEDS ORDERED: DIPRIVAN 200 MG/20 ML IV ONE (10:52)
[2024-02-26] MEDS ORDERED: SUBLIMAZE 100 MCG/2 ML ONE ×3 (10:53→12:33)
[2024-02-26] MEDS ORDERED: Versed 2 MG/2 ML Injection ONE (10:59)
[2024-02-26] MEDS ORDERED: ROBINUL ONE (11:02)
[2024-02-26] MEDS ORDERED: Decadron 4 MG INJ ONE (11:14)
[2024-02-26] MEDS ORDERED: TORAdol 30 mg Injection ONE (11:15)
[2024-02-26] MEDS ORDERED: Zofran 4 MG/2 ML VIAL ONE (11:15)
[2024-02-26] MEDS ORDERED: Ephedrine Sulfate 50 MG/ML ONE (11:44)
[2024-02-26] MEDS ORDERED: ATROPINE SULFATE 1MG ONE (11:46)
[2024-02-26] MEDS ORDERED: Lactated Ringers 1,000 ML IV ONE (11:52)
[2024-02-26 13:04] VITALS: BP 115/70; O2SAT 93
[2024-02-26 13:18] VITALS: PULSE 73; TEMP 97.4
--- NOTE | 2024-02-26 13:57 | OP ---
SURGERY DATE/TIME: 02/26/2024 1052 PREOPERATIVE DIAGNOSIS: Torn right medial menisci, chondromalacia of patella. POSTOPERATIVE DIAGNOSIS: Torn right medial menisci, chondromalacia of patella. PROCEDURES: 1) Arthroscopy of the right knee with partial medial meniscectomy. 2) Chondroplasty of the patella. SURGEON: Gamal Myers II, D.Ramón. ANESTHESIA: General. DESCRIPTION OF PROCEDURE: The patient was identified and informed consent was obtained. The patient was taken to the operative suite and placed in supine positon on the operating table where the general anesthetic was administered. Once an appropriate level of anesthesia had been obtained, the tourniquet was placed high on the right thigh and the right lower extremity was then placed into the knee case. The right lower extremity was then prepped and draped in the usual sterile fashion. A standard time out was taken. The leg was then exsanguinated and the tourniquet was then elevated to 350 mm of Mercury. A standard superior medial portal is created with an 11 blade and the trocar and camera were placed into the joint. The joint was distended with the arthroscopic pump. An infralateral portal was then created with an 11 blade and the arthroscope was placed in through a cannula. An 18 gauge spinal needle identified the level for the inframedial portal which was also created with an 11 blade. The knee was then inspected in a systematic fashion beginning in the suprapatellar pouch which had no loose bodies or synovial hypertrophy. The under surface of the patella was inspected and the lateral facet of the patella showed significant grade III and IV chondromalacia changes on the lateral facet. A chondroplasty was performed with a motorized shaver to remove the loose tissue. Trochlear groove and intercondylar notch were noted to be intact. The gutters were inspected. No loose bodies or synovial hypertrophy. The scope was placed into the medial compartment where a tear was noted involving the posterior horn of the medial meniscus as kind of complex tear which was resected with the handheld biting instrument and shaved to a smooth transition with the shaver. Intercondylar notch region was re-inspected and the anterior cruciate ligament was noted to be intact. The scope was placed into the lateral compartment where some very mild fraying of the lateral meniscus was noted along this far inner surface, which was incidentally trimmed with the handheld biting instrument and shaved with a shaver. At this point, the knee was re-inspected and copiously irrigated. No further pathology was identified. The instrumentation was removed and the portal sites were closed with interrupted 4-0 Nylon suture. The knee was infiltrated with 30 cc of 0.25% Marcaine with epinephrine. Adaptic, 4x4 and a standard postoperative arthroscopy dressing applied. The patient was then transferred to the cart and taken to the recovery room in satisfactory condition having tolerated the procedure well.
== END 2024-02-26 13:30 | disposition home or self-care (01) ==
LOC: SDC 08:05
PROVIDERS: ATTEND Orthopaedic Surgery
DX: S83.241A Other tear of medial meniscus, current injury, right knee, initial encounter (principal); M22.41 Chondromalacia patellae, right knee
CPT/HCPCS: 29881; J0461; J0690; J1100; J1885; J2250; J2405; J2704; J3010